=== PATIENT | female | born 1960 | race Caucasian/White ===

== ENCOUNTER 2017-08-02 18:52 | Inpatient (IN) | payer BC, OTHER ==
--- NOTE | 2017-08-02 19:07 | EDPHY ---
H & P Stated Complaint: Has diverticulitis, pain getting worse, on anti bx. Time Seen by Provider: 08/02/17 19:06 HPI/ROS: CHIEF COMPLAINT: Worsening abdominal pain HISTORY OF PRESENT ILLNESS: The patient presents to the ED with complaints of acutely worsening left lower quadrant pain for the past 3 days. The patient has a history of diverticulitis. She has had 3 discrete episodes. She was treated with Augmentin on the 24 of July by her primary care provider. The patient has not had fever or hematochezia. She has had worsening left lower quadrant pain and decreased appetite. The patient currently reports her abdominal pain is 8/10. She denies any associated dysuria. She denies any cough, congestion or additional infectious symptoms. REVIEW OF SYSTEMS: A comprehensive 10 point review of systems is otherwise negative aside from elements mentioned in the history of present illness. Source: Patient Exam Limitations: No limitations - Personal History Current Tetanus Diphtheria and Acellular Pertussis (TDAP): Yes - Medical/Surgical History Hx Asthma: No Hx Chronic Respiratory Disease: No Hx Diabetes: No Hx Cardiac Disease: No Hx Renal Disease: No Hx Cirrhosis: No Hx Alcoholism: No Hx HIV/AIDS: No Hx Splenectomy or Spleen Trauma: No Other PMH: depression, elevated lipids, 2 knee surgeries. Diverticulitis. - Social History Smoking Status: Never smoked - Physical Exam Exam: General Appearance: Alert, mild discomfort secondary to pain Eyes: Pupils equal and round no pallor or injection ENT, Mouth: Mucous membranes moist Respiratory: There are no retractions, lungs are clear to auscultation Cardiovascular: Regular rate and rhythm Gastrointestinal: Tenderness to palpation left lower quadrant, mild rebound, no peritoneal signs, normal bowel sounds Neurological: A&O, normal motor function, normal sensory exam, normal cranial nerves Skin: Warm and dry, no rashes Musculoskeletal: Neck is supple nontender Extremities: symmetrical, full range of motion Constitutional: Initial Vital Signs Temperature (C) 36.9 C 08/02/17 18:56 Heart Rate 99 08/02/17 18:56 Respiratory Rate 18 08/02/17 18:56 Blood Pressure 111/77 08/02/17 18:56 O2 Sat (%) 96 08/02/17 18:56 O2 Delivery Mode Room Air O2 (L/minute) 2 Allergies/Adverse Reactions: No Known Allergies Allergy (Verified 08/17/14 10:10) Home Medications: Medication Instructions Recorded Atorvastatin Calcium [Lipitor 40 40 mg PO HS 08/17/14 mg (*)] Herbals/Supplements -Info Only 1 ea PO DAILY 08/17/14 [place]-3 Fatty Acids [Fish Oil 1000 1,000 mg PO DAILY 08/17/14 mg (*)] Sertraline HCl [Zoloft 100mg (*)] 100 mg PO DAILY 08/17/14 Amox Tr-K Clv 250-62.5 MG/5 ml Susp 08/02/17 Medical Decision Making - Diagnostics Imaging Results: Imaging Impressions Abdomen CT 08/02/17 20:36 Impression: 1. Findings suggestive of mild pancolitis; with more focal inflammatory change in the sigmoid region suggesting uncomplicated diverticulitis. Comparison with old studies if available would be helpful. 2. Small fluid collection in the wall of the colon in the distal rectum presumably an inflammatory focus. 3. See above report for additional findings. Results called and discussed with Mio Rivas M.D., on August 02, 2017. ED Course/Re-evaluation: The patient presents to the ED with complaints of worsening abdominal pain despite oral antibiotics for assume diverticulitis. The patient has a history of diverticulitis x3. She has not sought surgical consultation. The patient arrives in a fair amount of discomfort. Her vital signs are noted to be stable. She has no peritoneal signs. Given her tenderness and recent antibiotic treatment a CT scan of the abdomen pelvis was obtained which demonstrates ongoing sigmoid diverticulitis. Patient will require admission to the hospital for further IV management of her symptoms and further bowel rest. The patient received IV Levaquin and Flagyl in the emergency department. Consultation was made with the hospitalist service. I spoke with Dr. Webber who will admit the patient. I re-evaluated the patient at 11:00 p.m.. She continues to have ongoing abdominal pain. She received an additional IV dose of morphine. Differential Diagnosis: Differential diagnosis considered includes diverticulitis, perforation, abscess , gastroenteritis - Data Points Laboratory Results: Laboratory Results 08/02/17 19:30 08/02/17 19:30 08/02/17 08/02/17 19:30 19:30 WBC 5.86 10^3/uL 10^3/uL (3.80-9.50) RBC 4.52 10^6/uL 10^6/uL (4.18-5.33) Hgb 15.2 g/dL g/dL (12.6-16.3) Hct 43.4 % % (38.0-47.0) MCV 96.0 fL fL (81.5-99.8) MCH 33.6 pg pg (27.9-34.1) MCHC 35.0 g/dL g/dL (32.4-36.7) RDW 12.2 % % (11.5-15.2) Plt Count 277 10^3/uL 10^3/uL (150-400) MPV 9.5 fL fL (8.7-11.7) Neut % (Auto) 58.5 % % (39.3-74.2) Lymph % (Auto) 20.1 % % (15.0-45.0) [place] % (Auto) 19.3 % H % (4.5-13.0) Eos % (Auto) 0.7 % % (0.6-7.6) Baso % (Auto) 0.9 % % (0.3-1.7) Nucleat RBC Rel Count 0.0 % % (0.0-0.2) Absolute Neuts (auto) 3.43 10^3/uL 10^3/uL (1.70-6.50) Absolute Lymphs (auto) 1.18 10^3/uL 10^3/uL (1.00-3.00) Absolute Monos (auto) 1.13 10^3/uL H 10^3/uL (0.30-0.80) Absolute Eos (auto) 0.04 10^3/uL 10^3/uL (0.03-0.40) Absolute Basos (auto) 0.05 10^3/uL 10^3/uL (0.02-0.10) Absolute Nucleated RBC 0.00 10^3/uL 10^3/uL (0-0.01) Immature Gran % 0.5 % % (0.0-1.1) Immature Gran # 0.03 10^3/uL 10^3/uL (0.00-0.10) Sodium 139 mEq/L mEq/L (134-144) Potassium 4.0 mEq/L mEq/L (3.5-5.2) Chloride 101 mEq/L mEq/L (97-110) Carbon Dioxide 25 mEq/l mEq/l (22-31) Anion Gap 13 mEq/L mEq/L (8-16) BUN 9 mg/dL mg/dL (7-23) Creatinine 0.9 mg/dL mg/dL (0.6-1.0) Estimated GFR > 60 Glucose 90 mg/dL mg/dL (70-100) Calcium 9.7 mg/dL mg/dL (8.5-10.4) Total Bilirubin 0.6 mg/dL mg/dL (0.1-1.4) Conjugated Bilirubin 0.1 mg/dL mg/dL (0.0-0.5) Unconjugated Bilirubin 0.5 mg/dL mg/dL (0.0-1.1) AST 20 IU/L IU/L (14-46) ALT 39 IU/L IU/L (9-52) Alkaline Phosphatase 46 IU/L IU/L (38-126) Total Protein 6.9 g/dL g/dL (6.3-8.2) Albumin 4.1 g/dL g/dL (3.5-5.0) Lipase 26 IU/L IU/L (23-300) Medications Given: Metronidazole/Sodium Chloride (Flagyl 500 Mg (Premix)) 100 mls @ 100 mls/hr IV EDNOW ONE PRN Reason: Protocol Stop: 08/02/17 22:58 Last Admin: 08/02/17 22:09 Dose: 100 mls Discontinued Medications Morphine Sulfate (Morphine) 4 mg IVP EDNOW ONE Stop: 08/02/17 20:09 Last Admin: 08/02/17 20:20 Dose: 4 mg Morphine Sulfate (Morphine) 4 mg IVP EDNOW ONE Stop: 08/02/17 22:32 Last Admin: 08/02/17 22:33 Dose: 4 mg Ondansetron HCl (Zofran) 4 mg IVP EDNOW ONE Stop: 08/02/17 20:09 Last Admin: 08/02/17 20:20 Dose: 4 mg Departure - Departure Disposition: [facility] Acute Clinical Impression: Acute diverticulitis Condition: Good
[2017-08-02 19:39] LABS: % IMMATURE GRANULYOCYTES 0.5 % (0.0-1.1); ABSOLUTE IMMATURE GRANULOCYTES 0.03 10^3/uL (0.00-0.10); ADD DIFF? NO; ADD MORPH? NO; ADD SCAN? NO; ATYPICAL LYMPHOCYTE FLAG 30 (0-99); FRAGMENT RBC FLAG 0 (0-99); HEMATOCRIT 43.4 % (38.0-47.0); HEMOGLOBIN 15.2 g/dL (12.6-16.3); LEFT SHIFT FLG 80 (0-99); LIPEMIA HEMOLYSIS FLAG 90 (0-99); MEAN CELL HEMOGLOBIN 33.6 pg (27.9-34.1); MEAN PLATELET VOLUME 9.5 fL (8.7-11.7); PLATELET CLUMPS FLAG 0 (0-99); PLATELET COUNT 277 10^3/uL (150-400); RED BLOOD CELL COUNT 4.52 10^6/uL (4.18-5.33); RED CELL DISTRIBUTION WIDTH 12.2 % (11.5-15.2)
[2017-08-02 19:57] LABS: ALANINE AMINOTRANSFERASE 39 IU/L (9-52); ALBUMIN 4.1 g/dL (3.5-5.0); ALKALINE PHOSPHATASE 46 IU/L (38-126); ANION GAP 13 mEq/L (8-16); ASPARTATE AMINOTRANSFERASE 20 IU/L (14-46); BILIRUBIN,TOTAL 0.6 mg/dL (0.1-1.4); BILIRUBIN-CONJUGATED 0.1 mg/dL (0.0-0.5); BILIRUBIN-UNCONJUGATED 0.5 mg/dL (0.0-1.1); CALCIUM 9.7 mg/dL (8.5-10.4); CARBON DIOXIDE 25 mEq/l (22-31); CHLORIDE 101 mEq/L (97-110); CREATININE 0.9 mg/dL (0.6-1.0); GLOMERULAR FILTRATION RATE > 60; GLUCOSE 90 mg/dL (70-100); SODIUM 139 mEq/L (134-144); TOTAL PROTEIN 6.9 g/dL (6.3-8.2)
[2017-08-02] MEDS ORDERED: ONDANSETRON 4 MG/2 ML VIAL IVP ONE (20:08)
[2017-08-02] MEDS ORDERED: IOPAMIDOL (ISOVUE-300) 100 ML BTL ONE (20:41)
[2017-08-02] MEDS ORDERED: ONDANSETRON 4 MG/2 ML VIAL IVP PRN (22:45)
[2017-08-02] MEDS ORDERED: ONDANSETRON DISINTEGRATING 4 MG TAB PO PRN (22:45)
--- NOTE | 2017-08-02 23:36 | PDGENHP ---
History and Physical - Chief Complaint Abdominal pain - History of Present Illness 57 yo F w/ hx of various bouts of diverticulitis and familial hyperlipidemia presents with abdominal pain. Patient first noticed malaise about three weeks ago. This was progressive and she then developed abdominal pain about 8-9 days ago. She called her PCP who prescribed a course of Augmentin for presumed diverticulitis but the pain only worsened. She came to the ED today where CT confirms uncomplicated diverticulitis. History Information - Allergies/Home Medication List Allergies/Adverse Reactions: No Known Allergies Allergy (Verified 08/17/14 10:10) Home Medications: Atorvastatin Calcium [Lipitor 40 mg (*)] 40 mg PO HS 08/17/14 [Last Taken ] Herbals/Supplements -Info Only 1 ea PO DAILY 08/17/14 [Last Taken Unknown] [place]-3 Fatty Acids [Fish Oil 1000 mg (*)] 1,000 mg PO DAILY 08/17/14 [Last Taken Unknown] Sertraline HCl [Zoloft 100mg (*)] 100 mg PO DAILY 08/17/14 [Last Taken 08/17/14] Amox Tr-K Clv 250-62.5 MG/5 ml Susp 08/02/17 [Last Taken Unknown] I have personally reviewed and updated: family history, medical history - Past Medical History Additional medical history: Diverticulitis. Hyperlipidemia - Family History Positive for: CAD Additional family history: Familial hyperlipidemia - Social History Smoking Status: Never smoked Review of Systems Review of Systems: ROS: 10pt was reviewed & negative except for what was stated in HPI & below Physical Exam Physical Exam: Temp Pulse Resp BP Pulse Ox 36.9 C 82 16 106/61 96 08/02/17 18:56 08/02/17 23:09 08/02/17 23:09 08/02/17 23:09 08/02/17 23:09 O2 (L/minute) 2 Constitutional: no apparent distress, not in pain Eyes: PERRL, EOMI Ears, Nose, Mouth, Throat: moist mucous membranes, no oral mucosal ulcers Cardiovascular: regular rate and rhythym, no murmur, rub, or gallop Respiratory: no respiratory distress, clear to auscultation Gastrointestinal: normoactive bowel sounds, soft, non-tender abdomen, tenderness (Exquisite LLQ TTP), No guarding, No rebound, No distension Skin: warm, normal color Musculoskeletal: full muscle strength, no muscle tenderness Neurologic: AAOx3, CN II-XII Intact Psychiatric: interacting appropriately, not anxious Lab Data & Imaging Review 08/02/17 19:30 08/02/17 19:30 WBC 5.86 10^3/uL (3.80-9.50) 08/02/17 19:30 RBC 4.52 10^6/uL (4.18-5.33) 08/02/17 19:30 Hgb 15.2 g/dL (12.6-16.3) 08/02/17 19:30 Hct 43.4 % (38.0-47.0) 08/02/17 19:30 MCV 96.0 fL (81.5-99.8) 08/02/17 19: MCH 33.6 pg (27.9-34.1) 08/02/17 19: MCHC 35.0 g/dL (32.4-36.7) 08/02/17 19:30 RDW 12.2 % (11.5-15.2) 08/02/17 19:30 Plt Count 277 10^3/uL (150-400) 08/02/17 19:30 MPV 9.5 fL (8.7-11.7) 08/02/17 19:30 Neut % (Auto) 58.5 % (39.3-74.2) 08/02/17 19:30 Lymph % (Auto) 20.1 % (15.0-45.0) 08/02/17 19:30 [place] % (Auto) 19.3 % (4.5-13.0) H 08/02/17 19:30 Eos % (Auto) 0.7 % (0.6-7.6) 08/02/17 19:30 Baso % (Auto) 0.9 % (0.3-1.7) 08/02/17 19: Nucleat RBC Rel Count 0.0 % (0.0-0.2) 08/02/17 19:30 Absolute Neuts (auto) 3.43 10^3/uL (1.70-6.50) 08/02/17 19:30 Absolute Lymphs (auto) 1.18 10^3/uL (1.00-3.00) 08/02/17 19:30 Absolute Monos (auto) 1.13 10^3/uL (0.30-0.80) H 08/02/17 19:30 Absolute Eos (auto) 0.04 10^3/uL (0.03-0.40) 08/02/17 19:30 Absolute Basos (auto) 0.05 10^3/uL (0.02-0.10) 08/02/17 19:30 Absolute Nucleated RBC 0.00 10^3/uL (0-0.01) 08/02/17 19:30 Immature Gran % 0.5 % (0.0-1.1) 08/02/17 19:30 Immature Gran # 0.03 10^3/uL (0.00-0.10) 08/02/17 19:30 Sodium 139 mEq/L (134-144) 08/02/17 19:30 Potassium 4.0 mEq/L (3.5-5.2) 08/02/17 19:30 Chloride 101 mEq/L (97-110) 08/02/17 19:30 Carbon Dioxide 25 mEq/l (22-31) 08/02/17 19:30 Anion Gap 13 mEq/L (8-16) 08/02/17 19:30 BUN 9 mg/dL (7-23) 08/02/17 19:30 Creatinine 0.9 mg/dL (0.6-1.0) 08/02/17 19:30 Estimated GFR > 60 08/02/17 19:30 Glucose 90 mg/dL (70-100) 08/02/17 19:30 Calcium 9.7 mg/dL (8.5-10.4) 08/02/17 19:30 Total Bilirubin 0.6 mg/dL (0.1-1.4) 08/02/17 19:30 Conjugated Bilirubin 0.1 mg/dL (0.0-0.5) 08/02/17 19:30 Unconjugated Bilirubin 0.5 mg/dL (0.0-1.1) 08/02/17 19:30 AST 20 IU/L (14-46) 08/02/17 19:30 ALT 39 IU/L (9-52) 08/02/17 19:30 Alkaline Phosphatase 46 IU/L (38-126) 08/02/17 19:30 Total Protein 6.9 g/dL (6.3-8.2) 08/02/17 19:30 Albumin 4.1 g/dL (3.5-5.0) 08/02/17 19:30 Lipase 26 IU/L (23-300) 08/02/17 19:30 Imaging Review: CT with uncomplicated, sigmoid diverticulitis. Assessment & Plan Assessment: 57 yo F presents with recurrent diverticulitis. Plan: 1. Acute diverticulitis, recurrent - Patient presents with 10 days of pain and CT findings of sigmoid, uncomplicated diverticulitis. This is her third bout of diverticulitis in the last 16 months. Prior episodes improved with antibiotics only. - CTX, Flagyl for empiric intra-abdominal coverage - Clear liquid diet, ADAT, mIVF - Oxycodone and morphine for pain control - Consider inpatient vs. outpatient surgical consultation for partial colectomy 2. Familial hyperlipidemia - Per patient report. Lipid panel in 2014 in our system WNL. Continue statin Diet - Clears Ppx - SCDs Code - Full Dispo - Admit to observation status
[2017-08-03] MEDS: oxyCODONE IR 5 MG TAB PO PRN ×2 (00:04→05:12)
[2017-08-03] MEDS: D5W 1/2 NS 1,000 ML IV SCH ×2 (00:06→12:09)
[2017-08-03] MEDS ORDERED: MELATONIN 3 MG TAB PO PRN (03:04)
[2017-08-03 05:23] LABS: ADD DIFF? YES; ADD MORPH? NO; ATYPICAL LYMPHOCYTE FLAG 0 (0-99); FRAGMENT RBC FLAG 0 (0-99); HEMATOCRIT 38.3 % (38.0-47.0); HEMOGLOBIN 12.8 g/dL (12.6-16.3); LIPEMIA HEMOLYSIS FLAG 80 (0-99); MEAN CELL HEMOGLOBIN 32.9 pg (27.9-34.1); MEAN CELL HEMOGLOBIN CONCENTR. 33.4 g/dL (32.4-36.7); MEAN CELL VOLUME 98.5 fL (81.5-99.8); MEAN PLATELET VOLUME 9.6 fL (8.7-11.7); PLATELET CLUMPS FLAG 0 (0-99); PLATELET COUNT 246 10^3/uL (150-400); RED BLOOD CELL COUNT 3.89 10^6/uL (4.18-5.33); RED CELL DISTRIBUTION WIDTH 12.5 % (11.5-15.2)
[2017-08-03 05:26] LABS: ADD SCAN? NO; LEFT SHIFT FLG 110 (0-99)
[2017-08-03 05:31] LABS: ANION GAP 10 mEq/L (8-16); CALCIUM 8.4 mg/dL (8.5-10.4); CARBON DIOXIDE 25 mEq/l (22-31); CHLORIDE 104 mEq/L (97-110); CREATININE 0.8 mg/dL (0.6-1.0); GLOMERULAR FILTRATION RATE > 60; GLUCOSE 112 mg/dL (70-100); POTASSIUM 3.9 mEq/L (3.5-5.2); SODIUM 139 mEq/L (134-144)
[2017-08-03 05:57] LABS: PLATELET ESTIMATE ADEQUATE (ADEQ)
--- NOTE | 2017-08-03 11:28 | HOSPPROG ---
Hospitalist Progress Note Assessment/Plan: New patient encounter 57 yo F admitted with recurrent diverticulitis. 1. Acute diverticulitis, recurrent - Patient presents with 10 days of pain and CT findings of sigmoid, uncomplicated diverticulitis. This is her third bout of diverticulitis in the last 16 months. Prior episodes improved with antibiotics only. - CTX, Flagyl for empiric intra-abdominal coverage - Clear liquid diet, ADAT - Cont IVF, will decrease rate - Oxycodone and morphine for pain control - surgical consultation for discussion of partial colectomy, will notify them 2. Familial hyperlipidemia - Per patient report. Lipid panel in 2015 in our system WNL. Continue statin 3. Weakness and deconditioning: PT to eval Diet - Clears Ppx - SCDs Code - Full Dispo - change to inpatient Subjective: still with LLQ abd pain. Feels better. Still with diarrhea. Requesting surgical eval to discuss surgical options Objective: Vital Signs Temp Pulse Resp BP Pulse Ox 36.5 C 68 18 94/55 L 96 08/03/17 07:50 08/03/17 07:50 08/03/17 07:50 08/03/17 07:50 08/03/17 07:50 Laboratory Results 08/03/17 05:08 08/03/17 05:08 08/02/17 08/03/17 08/04/17 05:59 05:59 05:59 Intake Total 1000 Output Total 500 Balance 500 - Physical Exam Constitutional: no apparent distress Eyes: PERRL Ears, Nose, Mouth, Throat: moist mucous membranes, hearing normal Cardiovascular: regular rate and rhythym, no murmur, rub, or gallop, No edema Respiratory: no respiratory distress, no rales or rhonchi, clear to auscultation Gastrointestinal: normoactive bowel sounds, tenderness (llq) Skin: warm Neurologic: AAOx3 Psychiatric: interacting appropriately, not anxious, not encephalopathic ICD10 Worksheet Patient Problems: Problems Problem Status Onset Acute diverticulitis Acute Appendicitis Acute
--- NOTE | 2017-08-03 11:51 | PDMN ---
Medical Necessity Medical necessity: C/M review: patient meets INPT criteria under MCG M-150 Diverticulitis, acute; Acute and persistent diverticulitis , recurrent, CT findings of of sigmoid, uncomplicated diverticulitis, acute and persistent worsening abdominal pain requiring planned General Surgery consult, ongoing IV Ceftriaxone QD, IV Flagyl Q 8 hrs., IV fluids, IV Morphine, acute inpt PT, comorbid - this is third bout of diverticulitis in the last 16 months, prior episodes improved with oral antibiotics only. MD anticipates > 2 MN LOS for ongoing med nec for eval and TX of above.
--- NOTE | 2017-08-03 15:18 | ASMTCMCOM ---
CM Note CM Note Notes: Pt admitted with recurrent diverticulitis. Pt has requested surgical consult which is ending. Pt's DC needs are TBD., Date Signed: 08/03/2017 03:18 PM Electronically Signed By:Nicki Sorenson LCSW
--- NOTE | 2017-08-03 20:44 | GCON ---
[f rep st] CONSULTATION GENERAL SURGERY CONSULTATION DATE OF CONSULTATION: 08/03/2017 CHIEF COMPLAINT: Recurrent diverticulitis. HISTORY OF PRESENT ILLNESS: The patient is a 57-year-old woman, who has been admitted for uncomplicated diverticulitis. She reports that she had her 1st episode in May 2016, which required a hospital admission. She had a 2nd serious episode in November 2016. She reports a few other bouts of what she thought were diverticulitis, which were managed without antibiotics. A week prior to admission, she contacted her family doctor who put her on antibiotics. Her pain increased so that she was doubled over. She went on a clear liquid diet, but the pain was still severe, so she presented to the hospital. A CT scan was obtained which showed uncomplicated diverticulitis in the sigmoid colon. She is still having pain with drinking water in her left lower quadrant. She does have diarrhea. She does not have any fevers. PAST MEDICAL HISTORY: Hyperlipidemia. PAST SURGICAL HISTORY: Appendectomy 3 years ago. 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 She does not use tobacco products. FAMILY HISTORY: Significant for lipidemia and coronary artery disease. REVIEW OF SYSTEMS: A 10-point review of systems was negative, except per HPI. PHYSICAL EXAMINATION: VITALS: Reviewed. GENERAL: A pleasant, well-nourished , well-groomed woman sitting on bed. HEENT: Normocephalic. No gross hearing deficits. Mucous membranes moist. Pupils equal and round. No scleral icterus. LUNGS: No increased work of breathing. CARDIAC: No peripheral edema. ABDOMEN: Bowel sounds present. Her scars are well healed. She is extremely tender to palpation in the left lower quadrant, but otherwise nontender. SKIN: Warm and dry. PSYCHIATRIC: Mood and affect normal. NEUROLOGIC: Grossly intact. LAB RESULTS: Reviewed. As per HPI. IMPRESSION AND PLAN: The patient is a 57-year-old woman with several bouts of uncomplicated diverticulitis. She will be moving to [facility]. She is considering colectomy. We discussed the procedure, including the risks such as stroke, heart attack, , blood clots, infection, bleeding, leak, and possible ostomy. We also discussed the benefits of hopefully preventing future attacks of diverticulitis. We also discussed probiotics and how there is not good evidence in adults that they returned the gastrointestinal ham to normal after taking prolonged antibiotics. I told her the ideal timing would be 4-6 weeks after her last attack. I have given her my business card and she will call me make an appointment in my office. I recommended to the patient that she not advance her diet until her pain had improved dramatically. If she is having pain with water, I can only suspect that would be worse with food. She understands and agrees. Thank you for the opportunity to see her. Please do not hesitate to reach out if her symptoms worsen during this hospitalization. /[id number]/MODL MTDD
[2017-08-03] MEDS: ACETAMINOPHEN 325 MG TAB PO PRN (21:53)
[2017-08-03] MEDS: ATORVASTATIN CALCIUM 40 MG TAB PO SCH (21:53)
[2017-08-03] MEDS: ZOLPIDEM TARTRATE 5 MG TAB PO PRN (21:53)
[2017-08-04] MEDS: D5W 1/2 NS 1,000 ML IV SCH (03:37)
[2017-08-04] MEDS: SERTRALINE HCL 100 MG TAB PO SCH (08:36)
--- NOTE | 2017-08-04 12:27 | HOSPPROG ---
Hospitalist Progress Note Assessment/Plan: 57 yo F admitted with recurrent uncomplicated diverticulitis. Today she feels worse. More LLQ abd pain. Afebrile. 1. Acute diverticulitis, recurrent - Patient presents with 10 days of pain and CT findings of sigmoid, uncomplicated diverticulitis. This is her third bout of diverticulitis in the last 16 months. Prior episodes improved with antibiotics only. - CTX, Flagyl for empiric intra-abdominal coverage - change diet to NPO - consider reimaging if does not improve - IVF - Oxycodone and morphine for pain control - surgical consultation for discussion of partial colectomy: Dr. Forrest consulted. Pt can f/u as an outpatient 2. Familial hyperlipidemia - Per patient report. Lipid panel in 2014 in our system WNL. Continue statin 3. Weakness and deconditioning: PT to eval 4. Diarrhea: check stool cuture/C-Diff. She does not want Immodium Ppx - SCDs Code - Full Dispo - Cont inpatient Subjective: Feels worse. Has recurrent of LLQ pain. Has been on a CLD. No N/V. Still with intermittent diarrhea. Objective: Vital Signs Temp Pulse Resp BP Pulse Ox 36.6 C 80 18 111/72 94 08/04/17 07:41 08/04/17 07:41 08/04/17 07:41 08/04/17 07:41 08/04/17 07:41 08/03/17 08/04/17 08/05/17 05:59 05:59 05:59 Intake Total 2550 Balance 2550 - Physical Exam Constitutional: no apparent distress, appears nourished Eyes: PERRL, EOMI Ears, Nose, Mouth, Throat: moist mucous membranes, hearing normal Cardiovascular: regular rate and rhythym, No edema Respiratory: no respiratory distress, no rales or rhonchi Gastrointestinal: tenderness (LLQ tenderness. NO R/G), No guarding, No rebound Skin: warm Neurologic: AAOx3 Psychiatric: interacting appropriately, not anxious, not encephalopathic ICD10 Worksheet Patient Problems: Problems Problem Status Onset Acute diverticulitis Acute Appendicitis Acute
[2017-08-04] MEDS: VANCOMYCIN 125 MG/2.5 ML UDL PO SCH ×2 (14:36→20:09)
[2017-08-04] MEDS: ACETAMINOPHEN 325 MG TAB PO PRN (17:16)
[2017-08-04] MEDS: ATORVASTATIN CALCIUM 40 MG TAB PO SCH (20:11)
[2017-08-04] MEDS: ZOLPIDEM TARTRATE 5 MG TAB PO PRN ×2 (21:23→22:55)
[2017-08-05] MEDS: D5W 1/2 NS 1,000 ML IV SCH (04:35)
[2017-08-05] MEDS: VANCOMYCIN 125 MG/2.5 ML UDL PO SCH ×4 (05:10→21:39)
[2017-08-05 05:23] LABS: % IMMATURE GRANULYOCYTES 1.3 % (0.0-1.1); ABSOLUTE IMMATURE GRANULOCYTES 0.06 10^3/uL (0.00-0.10); ADD DIFF? NO; ADD MORPH? NO; ADD SCAN? NO; ATYPICAL LYMPHOCYTE FLAG 40 (0-99); FRAGMENT RBC FLAG 0 (0-99); HEMATOCRIT 37.3 % (38.0-47.0); LEFT SHIFT FLG 10 (0-99); LIPEMIA HEMOLYSIS FLAG 90 (0-99); MEAN CELL HEMOGLOBIN 33.2 pg (27.9-34.1); MEAN CELL HEMOGLOBIN CONCENTR. 34.9 g/dL (32.4-36.7); MEAN CELL VOLUME 95.2 fL (81.5-99.8); MEAN PLATELET VOLUME 9.7 fL (8.7-11.7); PLATELET CLUMPS FLAG 0 (0-99); PLATELET COUNT 244 10^3/uL (150-400); RED BLOOD CELL COUNT 3.92 10^6/uL (4.18-5.33); RED CELL DISTRIBUTION WIDTH 12.1 % (11.5-15.2)
--- NOTE | 2017-08-05 10:38 | HOSPPROG ---
Hospitalist Progress Note Assessment/Plan: 57 yo F new to my care 08/05/17 admitted with recurrent uncomplicated diverticulitis # Acute diverticulitis, recurrent - Patient presents with 10 days of pain and CT findings of sigmoid, uncomplicated diverticulitis. This is her third bout of diverticulitis in the last 16 months. Prior episodes improved with antibiotics only. - dc ctx start levaquin and cont flagyl - advance diet to full liquids - buff cap IVF - Oxycodone and morphine for pain control -trial levsin - surgical consultation for discussion of partial colectomy: Dr. Forrest consulted. Pt can f/u as an outpatient #antibiotic associated cdiff -cont po vanco -contract precautions 2. Familial hyperlipidemia - Per patient report. Lipid panel in 2014 in our system WNL. Continue statin 3. Weakness and deconditioning: PT to eval Ppx - SCDs Code - Full Dispo - Cont inpatient Subjective: feeling better today. continues to have llq pain 4/10, but improving. reports frequent diarrhea that hasn't improved. denies fever or chills. denies vomiting. Not eating today due to NPo status. Objective: Vital Signs Temp Pulse Resp BP Pulse Ox 36.6 C 61 18 112/75 94 08/05/17 10:22 08/05/17 10:22 08/05/17 10:22 08/05/17 10:22 08/05/17 10:22 Microbiology 08/04/17 11:55 Gastrointestinal Tract Panel (PCR) - Final Unspecified Clostridium Difficile Detected Laboratory Results 08/05/17 04:58 08/04/17 08/05/17 08/06/17 05:59 05:59 05:59 Intake Total 2550 2603 Balance 2550 2603 - Physical Exam Constitutional: no apparent distress, appears nourished, not in pain Cardiovascular: regular rate and rhythym, no murmur, rub, or gallop Respiratory: no respiratory distress, no rales or rhonchi, clear to auscultation Gastrointestinal: normoactive bowel sounds, tenderness (llq with deep palpation) , No guarding, No rebound Skin: no rashes or abrasions, no fluctuance, no induration ICD10 Worksheet Patient Problems: Problems Problem Status Onset Appendicitis Acute Acute diverticulitis Acute
[2017-08-05] MEDS: SERTRALINE HCL 100 MG TAB PO SCH (10:45)
[2017-08-05] MEDS: ACETAMINOPHEN 325 MG TAB PO PRN (10:45)
[2017-08-05] MEDS ORDERED: HYOSCYAMINE SULFATE 0.125 MG TAB PO PRN (10:47)
[2017-08-05] MEDS ORDERED: D5W 1/2 NS 1,000 ML IV ONE (18:00)
[2017-08-05] MEDS: ATORVASTATIN CALCIUM 40 MG TAB PO SCH (21:39)
[2017-08-05] MEDS: ZOLPIDEM TARTRATE 5 MG TAB PO PRN (21:46)
[2017-08-06] MEDS: VANCOMYCIN 125 MG/2.5 ML UDL PO SCH ×4 (05:53→21:08)
[2017-08-06] MEDS: SERTRALINE HCL 100 MG TAB PO SCH (08:09)
--- NOTE | 2017-08-06 10:55 | HOSPPROG ---
Hospitalist Progress Note Assessment/Plan: 57 yo F new to my care 08/05/17 admitted with recurrent uncomplicated diverticulitis # Acute diverticulitis, recurrent - Patient presents with 10 days of pain and CT findings of sigmoid, uncomplicated diverticulitis. This is her third bout of diverticulitis in the last 16 months. Prior episodes improved with antibiotics only. - continue levaquin and flagyl - advance diet to full liquids - buff cap IVF -trial levsin - surgical consultation for discussion of partial colectomy: Dr. Forrest consulted. Pt can f/u as an outpatient #antibiotic associated cdiff -cont po vanco will increase does to 250mg qid -contract precautions 2. Familial hyperlipidemia - Per patient report. Lipid panel in 2015 in our system WNL. Continue statin 3. Weakness and deconditioning: PT to eval Ppx - SCDs Code - Full Dispo - Cont inpatient Subjective: Continues to have profuse diarrhea. Whenever she eats anything head and "goes right through her ". The left lower quadrant abdominal pain persists and is described as a 4 to 5/10. She is not requiring any IV narcotics. Objective: Vital Signs Temp Pulse Resp BP Pulse Ox 36.4 C 67 18 123/88 H 96 08/06/17 08:59 08/06/17 08:59 08/06/17 08:59 08/06/17 08:59 08/06/17 08:59 Laboratory Results 08/05/17 04:58 08/05/17 08/06/17 08/07/17 05:59 05:59 05:59 Intake Total 2603 1025 Balance 2603 1025 - Physical Exam Constitutional: no apparent distress, appears nourished, not in pain Cardiovascular: regular rate and rhythym, no murmur, rub, or gallop Respiratory: no respiratory distress, no rales or rhonchi, clear to auscultation Gastrointestinal: normoactive bowel sounds, soft, non-tender abdomen, no palpable masses, No guarding, No rebound ICD10 Worksheet Patient Problems: Problems Problem Status Onset Clostridium difficile infection Acute ~08/04/17 Appendicitis Acute Acute diverticulitis Acute
[2017-08-06] MEDS: ATORVASTATIN CALCIUM 40 MG TAB PO SCH (21:08)
[2017-08-06] MEDS: ZOLPIDEM TARTRATE 5 MG TAB PO PRN (22:17)
[2017-08-06] MEDS: ACETAMINOPHEN 325 MG TAB PO PRN (22:19)
[2017-08-07] MEDS: VANCOMYCIN 125 MG/2.5 ML UDL PO SCH ×3 (05:33→15:00)
[2017-08-07 08:44] VITALS: BP 120/64; PULSE 62; RESP 13; TEMP 98.2; O2SAT 93
[2017-08-07] MEDS: SERTRALINE HCL 100 MG TAB PO SCH (09:09)
--- NOTE | 2017-08-07 16:47 | ASDISCHSUM ---
Discharge Information Plan Status: Medically Cleared to Leave: Discharge Date:08/07/2017 04:00 PM CM D/C Disposition: ADT D/C Disposition:Home, Routine, Self-Care Projected Discharge Date:08/07/2017 04:00 PM Transportation at D/C: Discharge Delay Reason: Follow-Up Date:08/07/2017 04:00 PM Discharge Slot: Final Diagnosis: Placement Information Patient Contact Information Contact Name:FREDERIC Relationship:Thomas Address: Work Phone: City: [facility] Phone: State/[place] Code: Email: Financial Information Financial Class:HMO and PPO Plans Primary Plan Desc: OUT OF STATE PPO Primary Plan Number:[id number] Secondary Plan Desc: Secondary Plan Number: Assessment Information [facility] CM Progress Note CM Note CM Note Notes: Pt admitted with recurrent diverticulitis. Pt has requested surgical consult which is ending. Pt's DC needs are TBD., Date Signed: 08/03/2017 03:18 PM Electronically Signed By:Nicki Sorenson LCSW [facility] CM Progress Note CM Note CM Note Notes: Pt to DC today with no DC needs. Date Signed: 08/07/2017 04:46 PM Electronically Signed By:Nicki Sorenson LCSW Intervention Information Intervention Type:*Incorrect Registration Date of Service:08/02/2017 10:48 PM Patient Type:Observation Staff Member:HITESH Finley Shelly Hours:0.25 Discipline: Severity:1 (0-1 Hours) Comment:Registered inpatient; written admit or popeye for observation status.
--- NOTE | 2017-08-08 11:49 | GDS ---
[f rep st] DISCHARGE SUMMARY DISCHARGE DIAGNOSES: 1. Recurrent diverticulitis. 2. Clostridium difficile enterocolitis. 3. Familial hyperlipidemia. 4. Weakness and deconditioning. HOSPITAL COURSE BY PROBLEM: 1. Diverticulitis: The patient presented to the hospital for recurrent diverticulitis after finishi ng a 10-day course of Augmentin. A CT of the abdomen and pelvis was done on 08/02/2017, which showed mild pancolitis with focal inflammatory changes in the sigmoid region, suggesting an uncomplicated d iverticulitis. She was initially started on Rocephin and Flagyl IV. On hospital day #1, she develop ed diarrhea. A stool sample was sent which was positive for C. difficile. Subsequently she was star mayda on vancomycin as well. The patient's hospitalization has been prolonged due to severe diarrhea, presumably from her C. difficile infection. On hospital day 3, the Rocephin was switched to IV levof loxacin. 2. On day of discharge, the patient is feeling much better today with improved abdominal pain and di arrhea. She is not having any fevers or chills. She is tolerating a regular diet. PHYSICAL EXAMINATION: VITAL SIGNS: On day of discharge, blood pressure 120/64, pulse 62, respirator y rate 13, O2 sat 93% on room air. Temperature afebrile. ABDOMEN: Soft, nontender, nondistended. No guarding or rebound tenderness. Normoactive bowel sounds. PERTINENT LABORATORIES AND RADIOLOGY STUDIES: CT of the abdomen done 08/02/2017, refer to report. S tool PCR was positive for C. difficile. DISCHARGE MEDICATIONS: Please refer to discharge medication reconciliation in [facility] for full deta ils. Below is a preliminary list. New medications on hospital discharge: Flagyl 500 mg p.o. t.i.d. to complete 2 weeks of treatment, le vofloxacin 750 mg p.o. daily to complete 2 weeks of treatment, vancomycin 125 mg p.o. q.6 hours to co mplete 2 weeks of treatment. DISCHARGE INSTRUCTIONS: The patient will be discharged from the hospital where she should follow up with Dr. Buckley for consideration for a bowel resection for treatment of her recurrent diverticulitis. /[id number]/MODL
== END 2017-08-07 16:00 | disposition home or self-care (01) | DRG 392 ==
LOC: INTOOBSV 22:46 → F1N 23:14 → OBSVTOIN 08-03 11:22
PROVIDERS: ADMIT Student in an Organized Health Care Education/Training Program; ATTEND Family Medicine
DX: K57.32 Diverticulitis of large intestine without perforation or abscess without bleeding (principal); A04.72 Enterocolitis due to Clostridium difficile, not specified as recurrent; E78.5 Hyperlipidemia, unspecified; F32.9 Major depressive disorder, single episode, unspecified
CPT/HCPCS: 96365; 97161-GP; G0378; J0696; J1200; J1956; J2405; Q9967

== ENCOUNTER 2017-08-25 09:45 | Observation (INO) | payer BC ==
--- NOTE | 2017-08-25 09:54 | EDPHY ---
H & P Stated Complaint: "I think I have a relapse of Cdiff" Time Seen by Provider: 08/25/17 09:54 - Personal History Current Tetanus Diphtheria and Acellular Pertussis (TDAP): Yes - Medical/Surgical History Hx Asthma: No Hx Chronic Respiratory Disease: No Hx Diabetes: No Hx Cardiac Disease: No Hx Renal Disease: No Hx Cirrhosis: No Hx Alcoholism: No Hx HIV/AIDS: No Hx Splenectomy or Spleen Trauma: No Other PMH: depression, elevated lipids, 2 knee surgeries. Diverticulitis.appendectomy - Social History Smoking Status: Never smoked Constitutional: Initial Vital Signs Temperature (C) 36.5 C 08/25/17 09:51 Heart Rate 83 08/25/17 09:51 Respiratory Rate 18 08/25/17 09:51 Blood Pressure 100/55 L 08/25/17 09:51 O2 Sat (%) 97 08/25/17 09:51 O2 Delivery Mode Room Air Allergies/Adverse Reactions: No Known Allergies Allergy (Verified 08/25/17 09:48) Home Medications: Medication Instructions Recorded Atorvastatin Calcium [Lipitor 20 20 mg PO DAILY 08/25/17 mg (*)] Sertraline HCl [Zoloft 25mg (*)] 25 mg PO DAILY 08/25/17 Vancomycin [Vancomycin (*)] 250 mg PO 08/25/17 Medical Decision Making - Diagnostics Imaging Results: Imaging Impressions Abdomen CT 08/25/17 10:05 Impression: 1. Suspicious for developing bowel obstruction, secondary to sigmoid colitis superimposed upon diverticulosis/itis. Results called and discussed with Manoj Iyer MD, at 08/25/2017 11:13 General information for patients regarding this examination can be found at [email or web address]. If you have questions or comments about this report, please contact me at [phone] (hospital) or [phone] (cell). Imaging: Discussed imaging studies w/ ems director Radiologist ED Course/Re-evaluation: CHIEF COMPLAINT: Diarrhea, Abdominal cramping HISTORY OF PRESENT ILLNESS: The patient is a 57-year-old female, recently admitted for diverticulitis and subsequently developed clostridium difficile. She is currently on a 14 day course of oral vancomycin. She took about 10 days of pills of the Vancomycin and abdominal pain was improving initially but she continued to have diarrhea. After stopping the Vancomycin her pain worsened. She restarted the Vancomycin yesterday when she started getting sick again. Her pain has increased significantly with ongoing diarrhea. REVIEW OF SYSTEMS: A 10 point review of systems was performed and is negative with the exception of the elements mentioned in the history of present illness. PHYSICAL EXAM: HR, BP, O2 Sat, RR. Temp noted General Appearance: Alert, well hydrated, appears in pain. Head: Atraumatic without scalp tenderness or obvious injury Eyes: Pupils equal, round, reactive to light and accommodation, EOMI, no trauma , no injection. Ears: Clear bilaterally, no perforation, normal landmarks Nose: Atraumatic, no rhinorrhea, clear. Throat: There is no erythema or exudates, no lesions, normal tonsils, mucus membranes moist. Neck: Supple, 2+ carotid upstroke, nontender, no lymphadenopathy. Respiratory: No retractions, no distress, no wheezes, and no accessory muscle use. Lungs are clear to auscultation bilaterally. Cardiovascular: Regular rate and rhythm, no murmurs, rubs, or gallops. Bilateral carotid, radial, dorsalis pedis, and posterior tibial pulses intact. Good capillary refill all extremities. Gastrointestinal: Abdomen is diffusely tender to light palpation. Musculoskeletal: Normal active ROM of all extremities, atraumatic. Neurological: Alert, appropriate, and interactive. The patient has normal DTRs and non-focal cranial nerves, motor, sensory, and cerebellar exam. Skin: No rashes, good turgor, no nodules on palpation. Past medical history: Diverticulitis, Clostridium difficile Past surgical history: Appendectomy. Family history: Noncontributory. Social history: Here with her friend. DIAGNOSTICS/PROCEDURES/CRITICAL CARE TIME: CT abd/pelv shows diffuse worsening colitis. DIFFERENTIAL DIAGNOSIS: The differential diagnosis for the patient's abdominal pain included but was not limited to clostridium difficile, diverticulitis, ovarian cyst, pelvic inflammatory disease, ovarian torsion, urinary tract infection, cholecystitis, and appendicitis. MEDICAL DECISION MAKING: Patient with history of clostridium difficile presents with abdominal cramping and diarrhea. The patient is on a 14 day course of oral Vancomycin but stopped taking the Vancomycin around day 10 because her symptoms improved and she was confused because her diverticulitis abx stopped on day 10. After stopping the Vancomycin her symptoms worsened. She restarted the Vancomycin 2 days ago, but her pain has progressively worsened. The patient's abdomen is diffusely tender to light palpation. Plan for CT abd/ pelv to look for perforation or other acute disease. I ordered lab work and stool sample. IV was established, patient received 1mg Dilaudid, 30mg Toradol, 4mg Zofran, and 1L IV fluids. CT reported to me by the radiologist shows worsening diffuse colitis with dilation of the small bowel. Her lab work appears normal. I plan to admit the patient. I discussed findings with her, she agrees with the plan for admission. She received liquid Vancomycin 250mg. 11:20 a.m.: I spoke to the hospitalist team, the patient will be admitted to Dr. Vásquez. - Data Points Laboratory Results: Laboratory Results 08/25/17 10:10 08/25/17 10:10 08/25/17 08/25/17 10:10 10:10 WBC 8.47 10^3/uL 10^3/uL (3.80-9.50) RBC 4.33 10^6/uL 10^6/uL (4.18-5.33) Hgb 14.4 g/dL g/dL (12.6-16.3) Hct 41.6 % % (38.0-47.0) MCV 96.1 fL fL (81.5-99.8) MCH 33.3 pg pg (27.9-34.1) MCHC 34.6 g/dL g/dL (32.4-36.7) RDW 12.8 % % (11.5-15.2) Plt Count 293 10^3/uL 10^3/uL (150-400) MPV 9.6 fL fL (8.7-11.7) Neut % (Auto) 71.3 % % (39.3-74.2) Lymph % (Auto) 17.9 % % (15.0-45.0) [place] % (Auto) 8.3 % % (4.5-13.0) Eos % (Auto) 1.7 % % (0.6-7.6) Baso % (Auto) 0.6 % % (0.3-1.7) Nucleat RBC Rel Count 0.0 % % (0.0-0.2) Absolute Neuts (auto) 6.04 10^3/uL 10^3/uL (1.70-6.50) Absolute Lymphs (auto) 1.52 10^3/uL 10^3/uL (1.00-3.00) Absolute Monos (auto) 0.70 10^3/uL 10^3/uL (0.30-0.80) Absolute Eos (auto) 0.14 10^3/uL 10^3/uL (0.03-0.40) Absolute Basos (auto) 0.05 10^3/uL 10^3/uL (0.02-0.10) Absolute Nucleated RBC 0.00 10^3/uL 10^3/uL (0-0.01) Immature Gran % 0.2 % % (0.0-1.1) Immature Gran # 0.02 10^3/uL 10^3/uL (0.00-0.10) Sodium 141 mEq/L mEq/L (134-144) Potassium 4.2 mEq/L mEq/L (3.5-5.2) Chloride 106 mEq/L mEq/L (97-110) Carbon Dioxide 23 mEq/l mEq/l (22-31) Anion Gap 12 mEq/L mEq/L (8-16) BUN 7 mg/dL mg/dL (7-23) Creatinine 0.8 mg/dL mg/dL (0.6-1.0) Estimated GFR > 60 Glucose 77 mg/dL mg/dL (70-100) Calcium 9.3 mg/dL mg/dL (8.5-10.4) Total Bilirubin 0.8 mg/dL mg/dL (0.1-1.4) Conjugated Bilirubin 0.2 mg/dL mg/dL (0.0-0.5) Unconjugated Bilirubin 0.6 mg/dL mg/dL (0.0-1.1) AST 21 IU/L IU/L (14-46) ALT 37 IU/L IU/L (9-52) Alkaline Phosphatase 43 IU/L IU/L (38-126) Total Protein 6.6 g/dL g/dL (6.3-8.2) Albumin 3.9 g/dL g/dL (3.5-5.0) Lipase 41 IU/L IU/L (23-300) Medications Given: Vancomycin HCl (Vancocin Oral Liquid) 250 mg PO QID DAE PRN Reason: Protocol Stop: 09/24/17 11:59 Last Admin: 08/25/17 11:22 Dose: 250 mg Discontinued Medications Hydromorphone HCl (Dilaudid) 1 mg IVP EDNOW ONE Stop: 08/25/17 10:05 Last Admin: 08/25/17 10:24 Dose: 1 mg Sodium Chloride (Ns) 1,000 mls @ 0 mls/hr IV EDNOW ONE; Wide Open PRN Reason: Protocol Stop: 08/25/17 10:05 Last Admin: 08/25/17 10:24 Dose: 1,000 mls Ketorolac Tromethamine (Toradol) 30 mg IVP EDNOW ONE Stop: 08/25/17 10:05 Last Admin: 08/25/17 10:24 Dose: 30 mg Ondansetron HCl (Zofran) 4 mg IVP EDNOW ONE Stop: 08/25/17 10:05 Last Admin: 08/25/17 10:24 Dose: 4 mg Departure - Departure Disposition: [facility] Inpatient Acute Clinical Impression: Colitis Condition: Fair Referrals: Aracelis Ayala MD [Primary Care Provider] - As per Instructions Report Scribed for: Manoj Iyer Report Scribed by: Clarissa Ozuna Date of Report: 08/25/17 Time of Report: 09:57
[2017-08-25] MEDS ORDERED: ONDANSETRON 4 MG/2 ML VIAL IVP ONE (10:04)
[2017-08-25] MEDS ORDERED: NS 1,000 ML IV ONE (10:04)
[2017-08-25] MEDS ORDERED: HYDROmorphONE/DILAUDID 1 MG/ML INJ IVP ONE (10:04)
[2017-08-25] MEDS ORDERED: KETOROLAC 30 MG/1 ML SDV IVP ONE (10:04)
[2017-08-25 10:19] LABS: % IMMATURE GRANULYOCYTES 0.2 % (0.0-1.1); ABSOLUTE IMMATURE GRANULOCYTES 0.02 10^3/uL (0.00-0.10); ADD DIFF? NO; ADD MORPH? NO; ADD SCAN? NO; ATYPICAL LYMPHOCYTE FLAG 0 (0-99); FRAGMENT RBC FLAG 0 (0-99); HEMATOCRIT 41.6 % (38.0-47.0); HEMOGLOBIN 14.4 g/dL (12.6-16.3); LEFT SHIFT FLG 0 (0-99); LIPEMIA HEMOLYSIS FLAG 90 (0-99); MEAN CELL HEMOGLOBIN 33.3 pg (27.9-34.1); MEAN CELL HEMOGLOBIN CONCENTR. 34.6 g/dL (32.4-36.7); MEAN CELL VOLUME 96.1 fL (81.5-99.8); MEAN PLATELET VOLUME 9.6 fL (8.7-11.7); PLATELET CLUMPS FLAG 10 (0-99); PLATELET COUNT 293 10^3/uL (150-400); RED BLOOD CELL COUNT 4.33 10^6/uL (4.18-5.33); RED CELL DISTRIBUTION WIDTH 12.8 % (11.5-15.2)
[2017-08-25 10:33] LABS: ALANINE AMINOTRANSFERASE 37 IU/L (9-52); ALBUMIN 3.9 g/dL (3.5-5.0); ALKALINE PHOSPHATASE 43 IU/L (38-126); ANION GAP 12 mEq/L (8-16); ASPARTATE AMINOTRANSFERASE 21 IU/L (14-46); BILIRUBIN,TOTAL 0.8 mg/dL (0.1-1.4); BILIRUBIN-CONJUGATED 0.2 mg/dL (0.0-0.5); BILIRUBIN-UNCONJUGATED 0.6 mg/dL (0.0-1.1); CALCIUM 9.3 mg/dL (8.5-10.4); CARBON DIOXIDE 23 mEq/l (22-31); CHLORIDE 106 mEq/L (97-110); CREATININE 0.8 mg/dL (0.6-1.0); GLOMERULAR FILTRATION RATE > 60; GLUCOSE 77 mg/dL (70-100); POTASSIUM 4.2 mEq/L (3.5-5.2); SODIUM 141 mEq/L (134-144); TOTAL PROTEIN 6.6 g/dL (6.3-8.2)
[2017-08-25] MEDS ORDERED: IOPAMIDOL (ISOVUE-300) 100 ML BTL ONE (10:40)
[2017-08-25] MEDS ORDERED: ONDANSETRON DISINTEGRATING 4 MG TAB PO PRN (11:32)
[2017-08-25] MEDS ORDERED: ONDANSETRON 4 MG/2 ML VIAL IVP PRN (11:32)
[2017-08-25] MEDS ORDERED: PROMETHAZINE HCL 25 MG/ML INJ IVP PRN (11:32)
[2017-08-25] MEDS ORDERED: HYDROmorphONE/DILAUDID 2 MG TAB PO PRN (11:32)
[2017-08-25] MEDS ORDERED: HYDROmorphONE/DILAUDID 1 MG/ML INJ IVP PRN (11:32)
[2017-08-25] MEDS ORDERED: PROMETHAZINE HCL 25 MG TAB PO PRN (11:32)
[2017-08-25] MEDS ORDERED: D5W 1/2 NS 1,000 ML IV SCH (11:45)
--- NOTE | 2017-08-25 11:48 | ASMTCMCOM ---
CM Note CM Note Notes: PAtient admitted for recurrent CDiff, diverticulitis or diffuse colitis, small bowel dilation. Patient recently discharged from [facility] inpatient stay 08/03-08/07 for acute diverticulitis. Patient was discharged home with family and friends at that time. Patient's PCP is Dr. Aracelis Ayala. CM to follow. Date Signed: 08/25/2017 11:48 AM Electronically Signed By:Sima Long RN
[2017-08-25] MEDS ORDERED: VANCOMYCIN 125 MG/2.5 ML UDL PO SCH (12:00)
[2017-08-25 14:13] LABS: PRINT OR CALL CRITICALS TECH CALL
[2017-08-25] MEDS ORDERED: MELATONIN 3 MG TAB PO PRN (14:36)
--- NOTE | 2017-08-25 14:40 | PDGENHP ---
History and Physical - Chief Complaint Acute diarrhea - History of Present Illness PCP: Dr. Ayala Primary general surgeon: Dr. Ena Buckley Primary training lead: Dr. Emanuel Orellana HPI: 57-year-old female presenting with acute diarrhea characterized as nonbloody, watery, frequent, associated with abdominal pain located diffusely throughout her abdomen, worse in the lower quadrants, with onset of symptoms 2 days prior to presentation. This occurred in the context of the patient recently experiencing diverticulitis complicated by C diff colitis. She was discharged from [facility] with 10 subsequent days of levofloxacin and Flagyl, 14 subsequent days of oral vancomycin. She took these 3 antibiotics concomitantly for 10 days, and then discontinued all 3. Last use was 4 days prior to this presentation. She began experiencing the aforementioned diarrhea and abdominal pain 2 days ago, and she re-initiated her oral vancomycin without significant improvement. She has not been taking any pain medications at home. She received Dilaudid, Toradol, Zofran in the emergency department, and her abdominal pain seemed to be substantially alleviated with 1 mg of IV Dilaudid. History Information - Allergies/Home Medication List Allergies/Adverse Reactions: No Known Allergies Allergy (Verified 08/25/17 09:48) Home Medications: Atorvastatin Calcium [Lipitor 40 mg (*)] 40 mg PO HS 08/25/17 [Last Taken ] Herbals/Supplements -Info Only 1 ea PO DAILY 08/25/17 [Last Taken Unknown] Melatonin [Melatonin 3 MG (*)] 3 mg PO HS PRN 08/25/17 [Last Taken Unknown] Sertraline HCl [Zoloft 100mg (*)] 100 mg PO DAILY 08/25/17 [Last Taken 08/25/17] Vancomycin HCl 125 mg PO QID 08/25/17 [Last Taken 08/24/17] I have personally reviewed and updated: family history, medical history, social history, surgical history - Past Medical History hyperlipidemia Additional medical history: Diverticulitis recurrent x3. C diff colitis x1 - Surgical History Additional surgical history: Appendectomy by Dr. Ford in 2014 - Family History Positive for: CAD Additional family history: Familial hyperlipidemia. No 1st degree relatives with colon cancer or diverticulitis - Social History Smoking Status: Never smoked Alcohol Use: Occasionally Drug Use: None Additional social history: Patient is currently residing with a couple and their 18-year-old daughter, she is planning on returning to [facility] in 2018 Review of Systems Review of Systems: ROS: 10pt was reviewed & negative except for what was stated in HPI & below Gastrointestinal: Reports: abdominal pain, diarrhea Physical Exam Physical Exam: Temp Pulse Resp BP Pulse Ox 36.6 C 68 18 109/64 95 08/25/17 12:04 08/25/17 12:04 08/25/17 12:04 08/25/17 12:04 08/25/17 12:04 Constitutional: no apparent distress, appears nourished, uncomfortable, No not in pain (Mild) Eyes: PERRL, anicteric sclera, EOMI Ears, Nose, Mouth, Throat: moist mucous membranes, hearing normal, ears appear normal, no oral mucosal ulcers Cardiovascular: regular rate and rhythym, no murmur, rub, or gallop, No edema Respiratory: no respiratory distress, no rales or rhonchi, clear to auscultation Gastrointestinal: normoactive bowel sounds, tenderness (Bilateral lower quadrant ), No guarding, No distension Skin: warm, No abrasion, No rash Neurologic: AAOx3, sensation intact bilaterally, No weakness Psychiatric: interacting appropriately, not anxious, not encephalopathic, thought process linear Lab Data & Imaging Review 08/25/17 10:10 08/25/17 10:10 WBC 8.47 10^3/uL (3.80-9.50) 08/25/17 10:10 RBC 4.33 10^6/uL (4.18-5.33) 08/25/17 10:10 Hgb 14.4 g/dL (12.6-16.3) 08/25/17 10:10 Hct 41.6 % (38.0-47.0) 08/25/17 10:10 MCV 96.1 fL (81.5-99.8) 08/25/17 10:10 MCH 33.3 pg (27.9-34.1) 08/25/17 10:10 MCHC 34.6 g/dL (32.4-36.7) 08/25/17 10:10 RDW 12.8 % (11.5-15.2) 08/25/17 10:10 Plt Count 293 10^3/uL (150-400) 08/25/17 10:10 MPV 9.6 fL (8.7-11.7) 08/25/17 10:10 Neut % (Auto) 71.3 % (39.3-74.2) 08/25/17 10:10 Lymph % (Auto) 17.9 % (15.0-45.0) 08/25/17 10:10 [place] % (Auto) 8.3 % (4.5-13.0) 08/25/17 10:10 Eos % (Auto) 1.7 % (0.6-7.6) 08/25/17 10:10 Baso % (Auto) 0.6 % (0.3-1.7) 08/25/17 10:10 Nucleat RBC Rel Count 0.0 % (0.0-0.2) 08/25/17 10:10 Absolute Neuts (auto) 6.04 10^3/uL (1.70-6.50) 08/25/17 10:10 Absolute Lymphs (auto) 1.52 10^3/uL (1.00-3.00) 08/25/17 10:10 Absolute Monos (auto) 0.70 10^3/uL (0.30-0.80) 08/25/17 10:10 Absolute Eos (auto) 0.14 10^3/uL (0.03-0.40) 08/25/17 10:10 Absolute Basos (auto) 0.05 10^3/uL (0.02-0.10) 08/25/17 10:10 Absolute Nucleated RBC 0.00 10^3/uL (0-0.01) 08/25/17 10:10 Immature Gran % 0.2 % (0.0-1.1) 08/25/17 10:10 Immature Gran # 0.02 10^3/uL (0.00-0.10) 08/25/17 10:10 Sodium 141 mEq/L (134-144) 08/25/17 10:10 Potassium 4.2 mEq/L (3.5-5.2) 08/25/17 10:10 Chloride 106 mEq/L (97-110) 08/25/17 10:10 Carbon Dioxide 23 mEq/l (22-31) 08/25/17 10:10 Anion Gap 12 mEq/L (8-16) 08/25/17 10:10 BUN 7 mg/dL (7-23) 08/25/17 10:10 Creatinine 0.8 mg/dL (0.6-1.0) 08/25/17 10:10 Estimated GFR > 60 08/25/17 10:10 Glucose 77 mg/dL (70-100) 08/25/17 10:10 Calcium 9.3 mg/dL (8.5-10.4) 08/25/17 10:10 Total Bilirubin 0.8 mg/dL (0.1-1.4) 08/25/17 10:10 Conjugated Bilirubin 0.2 mg/dL (0.0-0.5) 08/25/17 10:10 Unconjugated Bilirubin 0.6 mg/dL (0.0-1.1) 08/25/17 10:10 AST 21 IU/L (14-46) 08/25/17 10:10 ALT 37 IU/L (9-52) 08/25/17 10:10 Alkaline Phosphatase 43 IU/L (38-126) 08/25/17 10:10 Total Protein 6.6 g/dL (6.3-8.2) 08/25/17 10:10 Albumin 3.9 g/dL (3.5-5.0) 08/25/17 10:10 Lipase 41 IU/L (23-300) 08/25/17 10:10 C. difficile Tox (PCR) POSITIVE (NEGATIVE) H 08/25/17 12:35 Visualized and Interpreted imaging results: Yes Interpretation: Abdominal CT demonstrating early bowel obstruction with dilation of the cecum to 7 cm, proximal dilation of small bowel, sigmoid inflammation with edema, diverticulosis Assessment & Plan Assessment: 57-year-old female presenting with acute abdominal pain and diarrhea, suspected persistent C difficile colitis Plan: 1. Suspected persistent C difficile colitis. Patient's C diff occurred in the setting of antibiotic treatment for diverticulitis, and the patient received 10 days of oral vancomycin concomitantly with Flagyl and levofloxacin, then discontinued therapy and experienced recurrent diarrhea and worsening abdominal pain. -reviewed outside records including discharge summary by Dr. Dominic Rothman from , recounting patient's most recent hospitalization for diverticulitis complicated by C difficile colitis, reports that the intended treatment plan was 14 total days of oral vancomycin as well as 14 total days of Flagyl and levofloxacin, to be completed concurrently -I believe that the most recent relapse in symptoms is most likely persistent C diff, rather than recurrent or treatment failure, given that the patient did not receive an adequate duration of therapy beyond discontinuing the other two antibiotics -consequently, will resume vancomycin 125 mg 4 times daily -suspect patient will require 14 days of vancomycin therapy -consult with ID in the a.m. and review with the patient has experienced improvement in her symptoms, review duration of therapy and follow-up plan -okay for patient to eat regular diet, continue IV fluids given ongoing volume losses -requiring p.r.n. IV an oral Dilaudid, antiemetics 2. Diverticulitis. Status post adequate duration of antibiotic treatment, CT demonstrating ongoing diverticulosis with sigmoid inflammation and edema, not particularly worse from last scan, believe that patient's acute presentation is more likely secondary to C diff colitis then diverticular cause -monitor patient's symptoms for improvement with single agent vancomycin -if no improvement in symptoms, worsening white count, fever, then would recommend considering initiation of empiric IV antibiotics for potentially undertreated diverticulitis -counseled patient to keep her colonoscopy appointment with Dr. Orellana on October 15, and to call his office and ask whether that would be an appropriate date for the procedure or whether he would like to push it back a couple weeks -after patient has had her colonoscopy, she plans to follow up with Dr. Forrest and consider possible surgery, I have counseled patient that surgical intervention may be appropriate given her complications from diverticulitis, notably C diff colitis, which may reoccur in the future if and when she experiences recurrent diverticulitis Diet. Regular, with IV fluids next for prophylaxis. Low risk patient, SCDs, hold pharm Code. Full Disposition. Anticipated discharge is 08/26/2017, pending clinical resolution of above, pending Infectious Disease consultation. Greater than 70 min spent with the patient, greater than 50% time spent counseling regarding the above as well as coordinating her care.
[2017-08-25] MEDS: VANCOMYCIN 125 MG/2.5 ML UDL PO SCH ×2 (15:28→20:57)
[2017-08-25] MEDS: ACETAMINOPHEN 325 MG TAB PO PRN (17:17)
[2017-08-25] MEDS: ZOLPIDEM TARTRATE 5 MG TAB PO PRN (20:56)
[2017-08-25] MEDS: ATORVASTATIN CALCIUM 40 MG TAB PO SCH (20:56)
[2017-08-25 22:36] VITALS: RESP 16
[2017-08-26 04:51] LABS: % IMMATURE GRANULYOCYTES 0.2 % (0.0-1.1); ABSOLUTE IMMATURE GRANULOCYTES 0.01 10^3/uL (0.00-0.10); ADD DIFF? NO; ADD MORPH? NO; ADD SCAN? NO; ATYPICAL LYMPHOCYTE FLAG 10 (0-99); FRAGMENT RBC FLAG 0 (0-99); HEMATOCRIT 37.4 % (38.0-47.0); HEMOGLOBIN 12.4 g/dL (12.6-16.3); LEFT SHIFT FLG 0 (0-99); LIPEMIA HEMOLYSIS FLAG 80 (0-99); MEAN CELL HEMOGLOBIN 32.5 pg (27.9-34.1); MEAN CELL HEMOGLOBIN CONCENTR. 33.2 g/dL (32.4-36.7); MEAN CELL VOLUME 98.2 fL (81.5-99.8); MEAN PLATELET VOLUME 9.7 fL (8.7-11.7); PLATELET CLUMPS FLAG 0 (0-99); PLATELET COUNT 254 10^3/uL (150-400); RED BLOOD CELL COUNT 3.81 10^6/uL (4.18-5.33); RED CELL DISTRIBUTION WIDTH 12.7 % (11.5-15.2)
[2017-08-26 05:03] LABS: ANION GAP 8 mEq/L (8-16); CALCIUM 8.4 mg/dL (8.5-10.4); CARBON DIOXIDE 25 mEq/l (22-31); CHLORIDE 110 mEq/L (97-110); CREATININE 0.8 mg/dL (0.6-1.0); GLOMERULAR FILTRATION RATE > 60; GLUCOSE 100 mg/dL (70-100); POTASSIUM 4.6 mEq/L (3.5-5.2); SODIUM 143 mEq/L (134-144)
[2017-08-26] MEDS: VANCOMYCIN 125 MG/2.5 ML UDL PO SCH ×4 (06:04→21:03)
[2017-08-26] MEDS: ACETAMINOPHEN 325 MG TAB PO PRN ×2 (06:10→16:59)
[2017-08-26] MEDS: SERTRALINE HCL 100 MG TAB PO SCH (08:30)
[2017-08-26] MEDS ORDERED: Herbals/Supplements -Info Only PO SCH (09:00)
--- NOTE | 2017-08-26 12:37 | ASMTCMCOM ---
CM Note CM Note Notes: Patient is going to need an additional 14 days of vancomyacin @ 125mg, 4X's daily, since she didn't complete the first round of treatment. Per patient's nurse, d/c most likely tomorrow. Patient is stayng with friends currently and plans to return to [facility] in 2018. CM will follow. Date Signed: 08/26/2017 12:37 PM Electronically Signed By:Elisabet Mina LCSW
--- NOTE | 2017-08-26 15:33 | HOSPPROG ---
Hospitalist Progress Note Assessment/Plan: 57-year-old female presenting with acute abdominal pain and diarrhea, persistent C difficile colitis. Plan: 1. Persistent C difficile colitis. Patient's C diff occurred in the setting of antibiotic treatment for diverticulitis patient received 10 days of oral vancomycin concomitantly with Flagyl and levofloxacin, then discontinued therapy and experienced recurrent diarrhea and worsening abdominal pain. -consequently, will resume vancomycin 125 mg 4 times daily -patient will require 14 days of vancomycin therapy -okay for patient to eat regular diet, continue IV fluids given ongoing volume losses -requiring p.r.n. IV an oral Dilaudid, antiemetics 2. Diverticulitis. Status post adequate duration of antibiotic treatment, CT demonstrating ongoing diverticulosis with sigmoid inflammation and edema -monitor patient's symptoms for improvement with single agent vancomycin -if no improvement in symptoms, worsening white count, fever, then would recommend considering initiation of empiric IV antibiotics for potentially undertreated diverticulitis -counseled patient to keep her colonoscopy appointment with Dr. Orellana on October 15, and to call his office and ask whether that would be an appropriate date for the procedure or whether he would like to push it back a couple weeks -after patient has had her colonoscopy, she plans to follow up with Dr. Forrest and consider possible surgery, I have counseled patient that surgical intervention may be appropriate given her complications from diverticulitis, notably C diff colitis, which may reoccur in the future if and when she experiences recurrent diverticulitis Diet. Regular, with IV fluids next for prophylaxis. Low risk patient, SCDs, hold pharm Code. Full Disposition. Anticipated discharge is 08/27/2017, pending clinical resolution of above, pending Infectious Disease consultation. Subjective: Still having significant diarrhea. Still cramping and pain. Objective: Vital Signs Temp Pulse Resp BP Pulse Ox 36.8 C 63 16 113/67 93 08/26/17 08:00 08/26/17 08:00 08/26/17 08:00 08/26/17 08:00 08/26/17 08:00 Laboratory Results 08/26/17 04:30 08/26/17 04:30 08/25/17 08/26/17 08/27/17 05:59 05:59 05:59 Intake Total 1990 Output Total 1000 Balance 990 - Physical Exam Constitutional: no apparent distress, appears nourished, uncomfortable Eyes: PERRL, anicteric sclera, EOMI Ears, Nose, Mouth, Throat: moist mucous membranes, hearing normal, ears appear normal Cardiovascular: regular rate and rhythym, No JVD, No edema Respiratory: no respiratory distress, no rales or rhonchi, reduced air movement Gastrointestinal: tenderness, distension, No ascites, No guarding Skin: warm, normal color, No erythema Musculoskeletal: full muscle strength, normal joint ROM, no joint effusions Neurologic: AAOx3 Psychiatric: interacting appropriately, not anxious, not encephalopathic, thought process linear ICD10 Worksheet Patient Problems: Problems Problem Status Onset Colitis Acute Clostridium difficile infection Acute ~08/04/17 Appendicitis Acute Acute diverticulitis Acute
[2017-08-26 20:50] LABS: CLOSTRIDIUM DIFFICILE DNA POSITIVE (NEGATIVE)
[2017-08-26] MEDS: ATORVASTATIN CALCIUM 40 MG TAB PO SCH (21:03)
[2017-08-26] MEDS: ZOLPIDEM TARTRATE 5 MG TAB PO PRN (21:39)
[2017-08-27] MEDS: VANCOMYCIN 125 MG/2.5 ML UDL PO SCH ×2 (04:53→12:01)
[2017-08-27 06:18] LABS: ANION GAP 11 mEq/L (8-16); CALCIUM 8.9 mg/dL (8.5-10.4); CARBON DIOXIDE 26 mEq/l (22-31); CHLORIDE 107 mEq/L (97-110); CREATININE 0.7 mg/dL (0.6-1.0); GLOMERULAR FILTRATION RATE > 60; GLUCOSE 81 mg/dL (70-100); POTASSIUM 4.5 mEq/L (3.5-5.2); SODIUM 144 mEq/L (134-144)
[2017-08-27 07:46] VITALS: BP 106/63; PULSE 58; TEMP 98; O2SAT 96
[2017-08-27] MEDS: SERTRALINE HCL 100 MG TAB PO SCH (09:04)
--- NOTE | 2017-08-27 10:46 | PDDCSUM ---
Discharge Summary Discharge Summary: Dates of service 08/25-08/27/17 Consultations/procedures: none Hospital course by problem: 57-year-old female presenting with acute abdominal pain and diarrhea, persistent C difficile colitis. Plan: Recurrent c diff coltis: in the setting of prolonged abx and recurred despite a course of vancomycin. Discussed with ID who recommend completing a 14 day course of oral vanc, sxs have resolved and patient eager to dc home 2. Diverticulitis. Status post adequate duration of antibiotic treatment, CT demonstrating ongoing diverticulosis with sigmoid inflammation and edema She has had 4 bouts of diverticultis this year and has surgical consult pending as an outpatient DC home f/u with PCP, GI and surgery >35 min spent in dc of patient more than half in coordination of care
--- NOTE | 2017-08-27 15:12 | ASDISCHSUM ---
Discharge Information Plan Status:Home with No Needs Medically Cleared to Leave:08/26/2017 Discharge Date:08/27/2017 12:16 PM D/C Disposition: ADT D/C Disposition:Home, Routine, Self-Care Projected Discharge Date:08/27/2017 12:00 AM Transportation at D/C: Discharge Delay Reason: Follow-Up Date:08/27/2017 12:00 AM Discharge Slot: Final Diagnosis: Placement Information Patient Contact Information Contact Name:FREDERIC Relationship:Friend Address: Work Phone: City: [facility] Phone: State/ID [employer] Code: Email: Financial Information Financial Class:HMO and PPO Plans Primary Plan Desc: OUT OF STATE PPO Primary Plan Number:[id number] Secondary Plan Desc: Secondary Plan Number: Assessment Information [facility] CM Progress Note CM Note CM Note Notes: PAtient admitted for recurrent CDiff, diverticulitis or diffuse colitis, small bowel dilation. Patient recently discharged from [facility] inpatient stay 08/03-08/07 for acute diverticulitis. Patient was discharged home with family and friends at that time. Patient's PCP is Dr. Aracelis Ayala. CM to follow. Date Signed: 08/25/2017 11:48 AM Electronically Signed By:Sima Long RN LACE LACJaciel Acuity / Level of Care Answers: Was the patient admitted to hospital via the emergency department? Yes: Emergency dept visits in Answers: 2 last 6 months Score: 5 Date Signed: 08/25/2017 11:49 AM Electronically Signed By:Sima Long RN [facility] Progress Note CM Note CM Note Notes: Patient is going to need an additional 14 days of vancomyacin @ 125mg, 4X's daily, since she didn't complete the first round of treatment. Per patient's nurse, d/c most likely tomorrow. Patient is stayng with friends currently and plans to return to [facility] in 2018. CM will follow. Date Signed: 08/26/2017 12:37 PM Electronically Signed By:Elisabet Mina LCSW Case Management Discharge Plan Note Case Management Discharge Discharge Order Complete? Answers: Yes Patient to Obtain Answers: Independently Medications Transportation Arranged Answers: Other Notes: Independent Discharge Comments Notes: Patient to d/c independently today to home. Date Signed: 08/27/2017 11:48 AM Electronically Signed By:Elisabet Mina LCSW Intervention Information
== END 2017-08-27 12:16 | disposition home or self-care (01) ==
LOC: F3E 12:11
PROVIDERS: ADMIT Internal Medicine; ATTEND Internal Medicine
DX: K57.32 Diverticulitis of large intestine without perforation or abscess without bleeding (principal); A04.71 Enterocolitis due to Clostridium difficile, recurrent
CPT/HCPCS: 74177; G0378; J1170; J1885; J2405; Q9967

== ENCOUNTER 2017-10-03 17:11 | Emergency (ER) | payer BC ==
[2017-10-03 17:18] VITALS: TEMP 97.5
--- NOTE | 2017-10-03 17:49 | EDPHY ---
General Narrative: CHIEF COMPLAINT: Right knee pain HISTORY OF PRESENT ILLNESS: Patient complains of right knee pain that started several hours ago. She was walking down stairs with her hands full she tried to move her dog to the side. She says her knee popped and she felt increased pain in the posterior aspect of the right knee. She feels as though she hyperextended. He has had ongoing pain in the right knee for several weeks to 2 months. She then fell onto her side and struck the knee. She did not strike her head or lose consciousness. She has moderate to severe pain in the right posterior knee. It is colicky in seems to catch with certain movements. Difficulty bearing weight. No difficulty bending or straightening at rest. Pain radiates into the anterior guardado. No numbness or tingling. No weakness. No pain, redness or edema of the calf. She has elevated and iced extremity. No other associated complaints or modifying factors. ESTABLISHED ORTHOPEDIST: Previously seen by Dr. Beasley and Dr. France REVIEW OF SYSTEMS: Ten systems reviewed and are negative unless otherwise noted in the HPI PAST MEDICAL HISTORY: Depression, dyslipidemia, diverticulitis, osteoarthritis PAST SURGICAL HISTORY: Left knee surgery x2, appendectomy SOCIAL HISTORY: Nonsmoker. Lives and works here locally FAMILY HISTORY: Noncontributory EXAMINATION General Appearance: Alert, no distress HEENT: Normocephalic atraumatic. Pupils equal round reactive Neck: Supple nontender Cardiovascular: Symmetric DP and PT pulses 2+. Good signs of perfusion Neurological: A&O, sensation to the top of the foot is symmetric. Sensation to the bottom of the foot is symmetric. No footdrop. Strength is 5/5 in the lower extremities Skin: Warm and dry, no rash. No petechiae or purpura. No laceration. No head guardado. No ecchymosis. Extremities: Tenderness of the right knee posterior more so than anterior. No crepitus or deformity. Mild swelling noted. Possible mobile cystic structure to the popliteal region of right knee. No tenderness of the right calf. No pain with passive dorsiflexion of the foot. No evidence of DVT. Psychiatric: Mood and affect normal DIFFERENTIAL DIAGNOSES: Including but not limited to sprain, strain, fracture, dislocation, Brandon cyst MDM: 5:40 p.m. Acute right knee pain from hyperextension on top of ongoing posterior knee pain. Patient has no evidence of deformity or obvious fracture. There is no laceration. No evidence of DVT by examination. There may be a Brandon cyst present. I have ordered x-ray of the right knee. She is resting comfortably in no acute distress. 6:23 p.m. X-ray reveals no acute findings. There is evidence of osteoarthritis as read by me. I do feel she is stable for discharge home. There is no evidence of DVT or infection on examination. We discussed short course of knee immobilizer and crutches as needed. We discussed anti-inflammatories and follow up with her established orthopedist. She is also asking for referral to Dr. Tripp. I informed her that he is not on-call but I will provide his information. She is discharged home stable condition. ED precautions discussed SUPERVISION: This patient was independently evaluated without direct involvement of or examination by the attending physician. ED Precautions: Worsening pain. Erythema, edema, cyanosis, pallor, paresthesia or anesthesia. - Diagnostics Imaging Results: Imaging Impressions Knee X-Ray 10/03/17 17:34 Impression: 1. No acute osseous abnormalities. 2. Tricompartmental osteoarthrosis. - History Smoking Status: Never smoked - Objective Vital Signs: Initial Vital Signs Temperature (C) 97.5 F 10/03/17 17:15 Heart Rate 74 10/03/17 17:15 Respiratory Rate 18 10/03/17 17:15 Blood Pressure 140/67 H 10/03/17 17:15 O2 Sat (%) 95 10/03/17 17:15 O2 Delivery Mode Room Air Allergies/Adverse Reactions: No Known Allergies Allergy (Verified 10/03/17 17:13) Home Medications: Medication Instructions Recorded Atorvastatin Calcium [Lipitor 40 40 mg PO HS 08/25/17 mg (*)] Herbals/Supplements -Info Only 1 ea PO DAILY 08/25/17 Sertraline HCl [Zoloft 100mg (*)] 100 mg PO DAILY 08/25/17 Fidaxomicin 10/03/17 Departure - Departure Disposition: Home, Routine, Self-Care Clinical Impression: Right knee sprain Condition: Good Instructions: Knee Sprain (ED), Bakers Cyst (ED) Additional Instructions: 1. Weightbearing if pain-free 2. Use the provided knee immobilizer when ambulatory. Remove at night and when showering 3. Ice and elevate the extremity often 4. [id number] medication as prescribed as needed 5. Follow up with the orthopedist as discussed as needed 6. ED precautions as discussed Referrals: Nik Gilbert DO [Primary Care Provider] - As per Instructions Biju France MD [Medical Doctor] - As per Instructions Pierre Tripp MD [Medical Doctor] - As per Instructions
[2017-10-03 18:27] VITALS: BP 132/74; PULSE 69; RESP 16; O2SAT 97
== END 2017-10-03 18:30 | disposition home or self-care (01) ==
DX: S83.91XA Sprain of unspecified site of right knee, initial encounter (principal); X50.9XXA Other and unspecified overexertion or strenuous movements or postures, initial encounter; Y99.8 Other external cause status; Y93.01 Activity, walking, marching and hiking
CPT/HCPCS: L1832